=== PATIENT | male | born 1970 | race Caucasian/White ===

== ENCOUNTER → 2022-01-08 09:00 | Outpatient (CLI) | payer OTHER, SELFPAY ==
[2022-01-08 09:44] LABS: COVID19 -Nasal RAPID Negative (Negative)
== END ==
PROVIDERS: PCP Family Medicine; Visit Provider Surgery
DX: Z20.822 Contact with and (suspected) exposure to COVID-19 (principal); Z01.812 Encounter for preprocedural laboratory examination
CPT/HCPCS: 87635; C9803

== ENCOUNTER 2022-01-09 09:42 | Day surgery (SDC) | payer OTHER, SELFPAY ==
--- NOTE | 2022-01-09 | PATH_ITS ---
[facility] Accession Number: [id number] . 01 Material submitted: . PART A: colon - ASCENDING POLYP #1 PART B: colon - ASCENDING POLYP #2 PART C: colon - TRANSVERSE POLYPS PART D: sigmoid colon - SIGMOID POLYP . 01 Diagnosis: A. Ascending Polyp #1, Biopsy: Sessile serrated adenoma. . B. Ascending Polyp #2, Biopsy: Sessile serrated adenoma. . C. Transverse Colon, Polyps, Biopsies: Sessile serrated adenomas. . D. Sigmoid Colon, Polyp, Biopsy: Hyperplastic polyp. [facility] 01/17/2022 0932 Local . 01 Electronically signed: . Kellie Emanuel MD, Pathologist NPI- [id number] . 01 Gross description: . Part A: ASCENDING POLYP #1: Received in formalin is 1 fragment(s) of villarreal, soft tissue measuring 2.5 x 0.5 x 0.1 cm submitted entirely in 1 cassette(s) Part B: ASCENDING POLYP #2: Received in formalin are multiple fragment(s) of villarreal, soft tissue measuring 1.5 x 1.2 x 0.1 cm in aggregate submitted entirely in 1 cassette(s) Part C: TRANSVERSE POLYPS: Received in formalin are 2 fragment(s) of villarreal, soft tissue measuring 1.0 x 0.5 x 0.4 cm to 0.8 x 0.4 x 0.3 cm submitted entirely in 1 cassette(s) Part D: SIGMOID POLYP: Received in formalin is 1 fragment(s) of villarreal, soft tissue measuring 0.5 x 0.3 x 0.2 cm submitted entirely in 1 cassette(s) /CPE 01/11/2022 0556 Local . 01 Pathologist provided ICD-10: D12.2, D12.3 . 01 CPT . 934290, 591447, 211387, 379269 Specimen Comment: A courtesy copy of this report has been sent to [phone] Performed at: 01 [facility] [address] [place] [address], [place], [place] [id number] MD Tony Lepe MD Phone: [phone]
[2022-01-09 10:00] VITALS: BP 148/52; PULSE 71; RESP 98; TEMP 36.7; BMI 28.0
[2022-01-09] MEDS: LACTATED RINGERS 1,000 ML 200 ML IV (10:27)
--- NOTE | 2022-01-09 10:48 | PM.HP.1 ---
History of Present Illness History of Present Illness Date Patient Seen: 01/09/22 Time Patient Seen: 10:48 Chief complaint: SDC Narrative: Robert is a 51-year-old man who has never had a colonoscopy. His father had colon cancer in his 70s. Patient History Medical History (Updated 01/09/22 @ 10:48 by Yfn Kahn MD) Foot pain Kidney stones Surgical History (Updated 01/03/21 @ 21:09 by Sabrina He) Anesthesia History of back surgery (~2001) Family & Social History Family History (Updated 01/09/21 @ 20:21 by Sabrina He) Father Prostate cancer Mother Stroke Social History: household members spouse Tobacco & Substance use: Smoking Status Never smoker alcohol intake frequency 0-2 drinks per day Substance Use Type does not use Meds Home Medications and Allergies Allergies Allergy/AdvReac Type Severity Reaction Status Date / Time No Known Drug Allergies Allergy Verified 01/09/22 09:59 Exam Vital Signs (past 8 hours): - 01/09/22 10:00 Temperature 98.1 F Pulse Rate 71 Respiratory Rate 98 H Blood Pressure 148/52 H Oxygen Delivery Method Room Air Oxygen Delivery Method Room Air Const General: healthy appearing Assessment & Plan Assessment and plan (1) Family history of colon cancer: Status: Acute Plan 51-year-old man with a family history of colon cancer. We reviewed the risks and benefits and he would like to proceed. Time Spent With Patient Critical Care time: I spent a total of [] minutes of critical care time on this patient's care today; this time is exclusive of procedural time.
[2022-01-09] MEDS: MIDAZOLAM 5 MG/5 ML VIAL 7 MG IV (10:56)
[2022-01-09] MEDS: fentaNYL 100 MCG/2 ML INJ 175 MCG IV (10:56)
--- NOTE | 2022-01-09 11:44 | PM.OP.COLON ---
Operative Date/Time/Diagnoses Date of procedure: 01/09/22 Time of procedure: 11:44 Pre-op diagnosis: Family family history of colon cancer Post-op diagnosis: same Procedure & Clinicians Study performed: Colonoscopy Same procedure as scheduled: Yes Surgeon: Yfn Kahn Procedure Notes Procedure in detail: Surgeon: Yfn Kahn MD Procedure: The patient was brought to the endoscopy suite, placed in left lateral decubitus position. The patient was connected to monitoring devices. A time-out was performed. Sedation was administered. Once the patient was adequately sedated, a digital rectal exam was performed and was normal. The scope was then inserted and advanced to the cecum where the appendiceal orifice was identified and photographed. The scope was then slowly withdrawn over greater than 6 minutes. The mucosa was thoroughly inspected. There was a 1 cm polyp in the ascending colon removed with a cold calixto snare. There was a second polyp in the ascending colon just distal to the first which was about 1.5 cm. It was in a deep fold and we had to inject some saline to perform a saline lift to raise it up out of the fold. It was then removed piecemeal with about 3 passes of the cold calixto snare. There were 2 polyps in the transverse colon about 8 mm each both removed with cold snare and sent together. There was a 5 mm polyp in the sigmoid colon removed with cold snare. The scope was retroflexed in the rectum. The scope was straightened and removed. The patient was awakened and brought to recovery. Versed: 7 mg Fentanyl: 175 mcg EBL: 10 mL Findings: Multiple polyps as described above Scope withdrawal time: 39 Sedation minutes: 49 Post-procedure Recommendations: Will call with biopsy results Disposition: PACU
[2022-01-09 11:49] VITALS: BP 126/89; PULSE 69; RESP 16; TEMP 36.2; O2SAT 97
[2022-01-09 11:53] VITALS: BP 126/86; PULSE 76; RESP 15; O2SAT 98
[2022-01-09 11:58] VITALS: BP 134/88; PULSE 64; RESP 14; O2SAT 99
== END 2022-01-09 12:10 | disposition home or self-care (01) ==
PROVIDERS: PCP Family Medicine; Referring Provider Surgery; Visit Provider Surgery
PROC: 0DJD8ZZ Inspection of Lower Intestinal Tract, Via Natural or Artificial Opening Endoscopic (ICD-10-PCS; CPT 45378; principal; 2022-01-09 10:45)
DX: Z12.11 Encounter for screening for malignant neoplasm of colon (principal); Z80.0 Family history of malignant neoplasm of digestive organs; D12.2 Benign neoplasm of ascending colon; D12.3 Benign neoplasm of transverse colon
CPT/HCPCS: 45385; 45381; 99152; 99153; J2250; J3010

== ENCOUNTER → 2022-02-06 09:00 | Outpatient (CLI) | payer OTHER, SELFPAY ==
[2022-02-06 09:50] LABS: Add Manual Diff / Slide Review NO; Basophils Absolute Auto 0 /uL (0-100); Basophils Percent Auto 0.8 % (0-2); Eosinophils Absolute Auto 100 /uL (0-450); Eosinophils Percent Auto 2.7 % (2-4); Hematocrit 42.8 % (41-53); Hemoglobin 14.2 g/dL (13.5-17.5); Lymphocytes Absolute Auto 1300 /uL (1100-4500); Lymphocytes Percent Auto 27.6 % (25-40); Mean Corpuscular HGB Conc 33.2 % (30-36); Mean Corpuscular Hemoglobin 27.7 PG (26-34); Mean Corpuscular Volume 83.4 fL (80-100); Monocytes Absolute Auto 400 /uL (0-900); Monocytes Percent Auto 8.2 % (3-14); Neutrophils Absolute Auto 2800 /uL (1500-7000); Neutrophils Percent Auto 60.7 % (50-75); Platelet Count 202 X10^3/uL (150-400); Red Blood Cell Count 5.13 X10^6/uL (4.5-5.9); Red Cell Distribution Width 13.6 % (11.6-14.8); White Blood Cell Count 4.5 X10^3/uL (4.5-11.0)
[2022-02-06 10:15] LABS: Alanine Aminotransferase 32 IU/L (<50); Albumin 4.4 g/dL (3.5-5.0); Albumin Globulin Ratio 1.6 (1.0-2.8); Alkaline Phosphatase 103 U/L (38-126); Aspartate Aminotransferase 26 IU/L (17-59); BUN Creatinine Ratio 15.4 (6-22); Bilirubin Total 0.5 mg/dL (0.2-1.3); Blood Urea Nitrogen 12 mg/dL (9-20); Calcium 9.2 mg/dL (8.4-10.2); Carbon Dioxide 28 mmol/L (22-32); Chloride 102 mmol/L (98-107); Cholesterol 182 mg/dL (140-199); Estimated Glomerular Filt Rate > 60 mL/min (>60); Globulin 2.7 g/dL (1.7-4.1); Glucose 94 mg/dL (70-100); HDL Cholesterol 68 mg/dL (40-60); HEMOLYSIS < 15 (0-50); LDL Cholesterol Calculated 105 mg/dL (<100); Potassium 4.7 mmol/L (3.4-5.1); Sodium 138 mmol/L (137-145); Total Protein 7.1 g/dL (6.3-8.2); Triglycerides 47 mg/dL (35-150)
[2022-02-06 10:41] LABS: Prostate Specific Antigen Scrn 2.64 ng/mL (0.1-4.0)
== END ==
PROVIDERS: PCP Family Medicine; Referring Provider Family Medicine; Visit Provider Family Medicine
DX: Z00.00 Encounter for general adult medical examination without abnormal findings (principal); Z12.5 Encounter for screening for malignant neoplasm of prostate
CPT/HCPCS: 36415; 80053; 80061; 85025; G0103